=== PATIENT | female | born 1995 | race Caucasian/White ===

== ENCOUNTER → 2021-12-02 | Outpatient (CLI) | payer SELFPAY ==
[2021-12-02 12:10] LABS: hCG Titer Quant., Serum 235 mIU/mL (1-3)
== END | disposition home or self-care (01) ==
PROVIDERS: Referring Provider Nurse Practitioner Women's Health; Visit Provider Nurse Practitioner Women's Health
DX: O20.0 Threatened abortion (principal); Z3A.00 Weeks of gestation of pregnancy not specified
CPT/HCPCS: 36415; 84702; 86850; 86900; 86901

== ENCOUNTER → 2021-12-04 | Outpatient (CLI) | payer SELFPAY ==
[2021-12-04 11:58] LABS: hCG Titer Quant., Serum 71 mIU/mL (1-3)
== END | disposition home or self-care (01) ==
LOC: PAVLAB 10:55
PROVIDERS: Referring Provider Nurse Practitioner Women's Health; Visit Provider Nurse Practitioner Women's Health
DX: O20.0 Threatened abortion (principal)
CPT/HCPCS: 36415; 84702

== ENCOUNTER → 2021-12-11 | Outpatient (CLI) | payer SELFPAY ==
[2021-12-11 11:27] LABS: hCG Titer Quant., Serum 5 mIU/mL (1-3)
== END | disposition home or self-care (01) ==
LOC: PAVLAB 10:40
PROVIDERS: Obstetrics & Gynecology; Referring Provider Nurse Practitioner Women's Health; Visit Provider Nurse Practitioner Women's Health
DX: O20.0 Threatened abortion (principal)
CPT/HCPCS: 36415; 84702

== ENCOUNTER → 2022-04-04 | Outpatient (CLI) | payer SELFPAY ==
[2022-04-04 17:42] LABS: Amphetamine Urine VISTA NEGATIVE (<1000 ng/mL); Barbiturate Urine VISTA NEGATIVE (< 200 ng/mL); Benzodiazepine Urine VISTA NEGATIVE (< 200 ng/mL); Cocaine Urine VISTA NEGATIVE (< 300 ng/mL); Ecstacy Urine VISTA NEGATIVE (< 500 ng/mL); Methadone Urine VISTA NEGATIVE (< 300 ng/mL); PCP Urine VISTA NEGATIVE (< 25 ng/mL); THC Urine VISTA NEGATIVE (< 50 ng/mL); Vista UDS pH Range 5
[2022-04-07 21:07] LABS: Chlamydia By Nucleic Acid AMP Negative (Negative)
[2022-04-08 15:09] LABS: Gonococcus By Nucleic Acid AMP Negative (Negative)
== END | disposition home or self-care (01) ==
PROVIDERS: Visit Provider Obstetrics & Gynecology
DX: Z34.91 Encounter for supervision of normal pregnancy, unspecified, first trimester (principal); Z3A.10 10 weeks gestation of pregnancy
CPT/HCPCS: 80307; 87086; 87088; 87491; 87591

== ENCOUNTER → 2022-04-25 | Outpatient (CLI) | payer SELFPAY ==
[2022-04-25 10:54] LABS: Absolute Neutrophil Count 7.9 X10^3/uL (2.0-7.7); Basophil# 0.05 X10^3/uL; Basophil% 0.5 % (0-1); Eosinophil# 0.08 X10^3/uL; Eosinophils% 0.8 % (0-5); Hematocrit 37.4 % (37-47); Hemoglobin 12.5 g/dL (12.0-15.0); Lymphocyte % 19.1 % (19-41); Mean Corp Hgb Conc 33.4 g/dL (32-36); Mean Corpuscular Hgb 30.3 pg (27.0-32.0); Mean Corpuscular Volume 90.8 fL (81-99); Mean Platelet Vol. 12.2 fl (6.2-12.0); Monocyte# 0.42 X10^3/uL; NRBC Flagged by Analyzer 0 % (0-5); Neutrophil # 7.86 X10^3/uL (2.7-7.7); Platelet Count 192 K/mm3 (150-450); RBC Distribution Width CV 12.6 % (11.6-14.6); RBC Distribution Width SD 41.6 fl (35.1-43.9); Red Blood Count 4.12 M/mm3 (4.2-5.4); White Blood Count 10.5 K/mm3 (4.4-11.0)
[2022-04-25 12:30] LABS: HIV - WCH Non-Reactive (Nonreactive); Hepatitis B Surface Antigen Non-Reactive (Nonreactive); Hepatitis C Antibody Non-Reactive (Nonreactive); Rubella IgG Reactive (Nonreactive); Syphilis Antibodies Non-reactive
== END | disposition home or self-care (01) ==
PROVIDERS: Visit Provider Obstetrics & Gynecology
DX: Z34.91 Encounter for supervision of normal pregnancy, unspecified, first trimester (principal); Z3A.10 10 weeks gestation of pregnancy
CPT/HCPCS: 36415; 85025; 86703; 86762; 86780; 86803; 86850; 86900; 86901; 87340

== ENCOUNTER → 2022-06-10 | Outpatient (CLI) | payer SELFPAY ==
--- NOTE | 2022-06-10 08:03 | US_ITS ---
STUDY: SECOND AND THIRD TRIMESTER OBSTETRICAL ULTRASOUND - LIMITED REASON FOR EXAM: Female, 26 years old. anatomy PRIOR ULTRASOUND: None. TECHNIQUE: Transabdominal and Transvaginal TECHNICAL QUALITY: Adequate. FINDINGS: There is a single intrauterine fetus. The fetus is in a cephalic presentation. There is demonstrated cardiac activity with a heart rate of 144 bpm. There is a normal amniotic fluid volume. The largest amniotic fluid pocket measures 6 cm. The placenta is anterior in location and is not low lying. There are Grade 0 placental changes. The cervix measures cm in length: 4.5. BIOMETRY: BPD: 45 mm: 19 weeks, 3 days HC: 169 mm: 19 weeks, 4 days AC: 143 mm: 19 weeks, 4 days FL: 28 mm: 18 weeks, 3 days CI: 76 FL/AC: 19 FL/BPD: 62 HC/AC: 1.18 age by current US: 19 weeks, 1 days. CR by current US: 4.17.23. Estimated weight: 277 grams, +/- 42 grams, 14 %. Age by LMP: 19 weeks, 6 days. CR by LMP: 4.12.23. ANATOMY: Gender: Male Cranium: Normal lateral ventricles. Normal choroid plexus. Normal cerebellum. Normal cisterna magna. Normal face, nose and lips. Chest: Normal 4-chamber heart. Abdomen/Pelvis: Normal diaphragm. Normal stomach. Normal abdominal wall. Normal cord insertion. Normal 3 vessel cord. Normal kidneys. Normal bladder. Spine: Normal cervical spine. Normal thoracic spine. Normal lumbar spine. Normal sacrum. Extremities: Normal bilateral upper extremities. Normal bilateral lower extremities. US/OB Anatomy Scan IMPRESSION: There is a single live intrauterine with a heart rate of 144 bpm. age by current US: 19 weeks, 1 days. CR by current US: 4.17.23. Estimated weight: 277 grams, +/- 42 grams, 14 %. Electronically Signed: Anupam Olson MD at 15:00 EST ,
== END | disposition home or self-care (01) ==
PROVIDERS: Visit Provider Obstetrics & Gynecology
DX: O09.90 Supervision of high risk pregnancy, unspecified, unspecified trimester (principal); Z3A.19 19 weeks gestation of pregnancy
CPT/HCPCS: 76805; 76817

== ENCOUNTER → 2022-07-31 | Outpatient (CLI) | payer SELFPAY ==
[2022-07-31 10:14] LABS: Absolute Neutrophil Count 10.3 X10^3/uL (2.0-7.7); Basophil# 0.07 X10^3/uL; Basophil% 0.5 % (0-1); Eosinophil# 0.18 X10^3/uL; Eosinophils% 1.3 % (0-5); Hematocrit 35.7 % (37-47); Hemoglobin 12.2 g/dL (12.0-15.0); Lymphocyte % 17.1 % (19-41); Mean Corp Hgb Conc 34.2 g/dL (32-36); Mean Corpuscular Hgb 31.8 pg (27.0-32.0); Mean Platelet Vol. 11.4 fl (6.2-12.0); Monocyte# 0.49 X10^3/uL; Monocyte% 3.6 % (0-10); NRBC Flagged by Analyzer 0 % (0-5); Neutrophil % 76.8 % (47-70); Platelet Count 203 K/mm3 (150-450); RBC Distribution Width CV 12.8 % (11.6-14.6); RBC Distribution Width SD 43.7 fl (35.1-43.9); Red Blood Count 3.84 M/mm3 (4.2-5.4); White Blood Count 13.4 K/mm3 (4.4-11.0)
[2022-07-31 10:20] LABS: Glucose Challenge Gest 1H 50g 156 mg/dL (70-140)
[2022-07-31 10:58] LABS: HIV - WCH Non-Reactive (Nonreactive); Syphilis Antibodies Non-reactive
== END | disposition home or self-care (01) ==
PROVIDERS: Referring Provider Nurse Practitioner Women's Health; Visit Provider Nurse Practitioner Women's Health
DX: Z34.90 Encounter for supervision of normal pregnancy, unspecified, unspecified trimester (principal)
CPT/HCPCS: 36415; 82950; 85025; 86703; 86780

== ENCOUNTER → 2022-08-13 | Outpatient (CLI) | payer SELFPAY ==
[2022-08-13 08:53] LABS: Glucose GTT-Gestation. Fasting 93 mg/dL (<105)
[2022-08-13 08:55] LABS: Glucose GTT-Gestational 1 Hr 177 mg/dL (<190)
[2022-08-13 10:18] LABS: Glucose GTT-Gestational 2 Hr 167 mg/dL (<165)
[2022-08-13 11:31] LABS: Glucose GTT-Gestational 3 Hr 132 L (<145)
== END | disposition home or self-care (01) ==
PROVIDERS: Referring Provider Obstetrics & Gynecology; Visit Provider Obstetrics & Gynecology
DX: Z13.1 Encounter for screening for diabetes mellitus (principal)
CPT/HCPCS: 36415; 82951; 82952

== ENCOUNTER → 2022-10-07 | Outpatient (CLI) | payer SELFPAY | END | disposition home or self-care (01) | PROVIDERS: Referring Provider Registered Nurse; Visit Provider Registered Nurse | DX: Z34.90 Encounter for supervision of normal pregnancy, unspecified, unspecified trimester (principal) | CPT/HCPCS: 87081 ==

== ENCOUNTER 2022-11-02 06:30 | Inpatient (IN) | payer SELFPAY ==
[2022-11-02] VITALS (30 sets, daily range): BP systolic 105–133; BP diastolic 44–75; PULSE 75–127; RESP 16; TEMP 36.1–36.9; O2SAT 97–100; BMI 30.2
[2022-11-02 06:51] LABS: ROM Internal Control Test YES-OK TO RESULT pt. (Internal QC)
[2022-11-02 06:52] LABS: ROM Patient Test POSITIVE (Negative)
[2022-11-02] MEDS: Lactated Ringers 1,000 ML 50 ML IV (06:55)
[2022-11-02 07:11] LABS: Absolute Lymphocyte Count 2.66 X10^3/uL (0.83-4.51); Absolute Neutrophil Count 11.4 X10^3/uL (2.0-7.7); Basophil# 0.05 X10^3/uL; Basophil% 0.3 % (0-1); Eosinophil# 0.12 X10^3/uL; Eosinophils% 0.8 % (0-5); Hematocrit 35.7 % (37-47); Hemoglobin 12.3 g/dL (12.0-15.0); Lymphocyte # 2.66 X10^3/ul (0.83-4.51); Lymphocyte % 17.7 % (19-41); Mean Corp Hgb Conc 34.5 g/dL (32-36); Mean Corpuscular Hgb 31.2 pg (27.0-32.0); Mean Corpuscular Volume 90.6 fL (81-99); Mean Platelet Vol. 12.5 fl (6.2-12.0); Monocyte# 0.74 X10^3/uL; Monocyte% 4.9 % (0-10); NRBC Flagged by Analyzer 0 % (0-5); Neutrophil % 75.6 % (47-70); Platelet Count 150 K/mm3 (150-450); RBC Distribution Width CV 12.8 % (11.6-14.6); RBC Distribution Width SD 41.9 fl (35.1-43.9); Red Blood Count 3.94 M/mm3 (4.2-5.4); White Blood Count 15.1 K/mm3 (4.4-11.0)
[2022-11-02] MEDS: LACTATED RINGERS 500 ML 999 ML IV (08:28)
[2022-11-02 08:30] LABS: Syphilis Antibodies Non-reactive
--- NOTE | 2022-11-02 08:39 | HP.PCM.OB_ITS ---
HPI - General General Date of Admission: 11/02/22 HPI Narrative GERALDINE GARCES, is a 27 y/o @ 40 weeks 4 days who presents to L&D with spontaneous rupture of membranes. She is requesting an epidural at this time for painful contractions. Maternal Data Information CR Calculator Estimated Delivery Date Method Current WG Current Estimate 10/29/22 LMP (Certain) 40w 4d PFSH PFS Medical History (Updated 11/02/22 @ 06:10 by Serenity Tobias) Abnormal glucose affecting Anxiety Depression Miscarriage, threatened, early Supervision of normal first Home Medications prenat.vits,hemal,[id number] 1 tab PO DAILY 11/26/21 [History Last Taken 11/01/22] famotidine 20 mg tablet (Pepcid) 20 mg PO DAILY PRN Indigestion 11/02/22 [History Last Taken Unknown] ferrous sulfate 325 mg (65 mg iron) capsule,extended release 325 mg PO DAILY anemia 11/02/22 [History Last Taken 11/01/22] Allergy/AdvReac Type Severity Reaction Status Date / Time No Known Allergies Allergy Verified 10/21/22 13:07 Family History Father Cardiac arrhythmia Social History adopted: No household members: spouse current occupational status: employed current occupation: marketing pets and animals: Yes (avoid litter box) pets and animals: cat(s) history of recent travel: No sexually active: Yes Smoking Status: Never smoker alcohol intake: former details: not while substance use type: does not use well-balanced diet: daily or most days caffeine: No during the past year weight has: remained stable what type of physical activity do you participate in: none elier/samaritan: Orthodoxy seatbelt use: always do you feel safe at home: Yes additional social history: Spouse Kaleb History 2 Elective abortions Hx Para 0 Spontaneous abortions 1 Hx # Term Pregnancies Ectopic pregnancies Hx # Pregnancies Multiple births # of living children 0 Visit Details Expected Delivery Route/Plan Labor Preferences- CB/BF classes: encouraged labor support person: Kaleb labor intervention preferences: pain management options preferred: epidural cut cord/dad catch: [] : yes, plans PP control planned: [OCP vs condoms] discussed possible routes of delivery and associated risks: [] special requests: [] Plans Covid status: discussed Flu vaccine: declined Tdap vaccine: declines Rhogam: na LARC form signed: complete Problem list reviewed and updated with the most current plan of care details and appropriate orders placed. Relevant counseling for the gestational age provided. Continue routine care and follow up unless otherwise noted in visit notes/problem list details OB Flowsheet Initial Weight: Not Recorded Date -?-?-?-?-?-?-?-?-?-?-?-?- EGA Weight BP Urine Prot -?-?-?-?-?-?-?-?-?-?-?-?- Glucose FHR FuHt Pres Dilation -?-?-?-?-?-?-?-?-?-?-?-?- Effaced St Visit Note 12/02/21 -?-?-?-?-?-?-?-?-?-?-?-?- 12/02/21 151 lb 110/62 -?-?-?-?-?-?-?-?-?-?-?-?- -?-?-?-?-?-?-?--?-?-?-?-?- Work in for vagi nal bleeding. Rpt US per Dr Olivarez:no IUP noted. Endometrial lining 6mm. Probable SAB. HCG, T&S today. Repeat HCG 48 hr. Reviewed bleeding precautions 04/04/22 -?-?-?-?-?-?-?-?-?-?-?-?- 10w 2d 151 lb 127/72 -?-?-?-?-?-?-?-?-?-?-?-?- 160 -?-?-?-?-?-?-?-?-?-?-?-?- SM- no vb crampi ng 04/30/22 -?-?-?-?-?-?-?-?-?-?-?-?- 14w 0d 154 lb 109/71 Negative -?-?-?-?-?-?-?-?-?-?-?-?- Negative 155 -?-?-?-?-?-?-?-?-?-?-?-?- JV- no complaint s other than some constipation. Good movement and CRL appropriate for ga. anatomy ultrasound ordered. 05/27/22 -?-?-?-?-?-?-?-?-?-?-?-?- 17w 6d 159 lb 100/66 Negative -?-?-?-?-?-?-?-?-?-?-?-?- Negative 148 -?-?-?-?-?-?-?-?-?-?-?-?- MH-No VB, crampi ng. Some heartburn/meds reviewed. Anatomy US 06/1006/24/22 -?-?-?-?-?-?-?-?-?-?-?-?- 21w 6d 164 lb 4 oz 98/64 Nega tive -?-?-?-?-?-?-?-?-?-?-?-?- Negative 147 -?-?-?-?-?-?-?-?-?-?-?-?- MH-No VB, crampi ng. No movement yet, ant placenta. Denies concerns 07/29/22 -?-?-?-?-?-?-?-?-?-?-?-?- 26w 6d 165 lb 117/76 -?-?-?-?-?-?-?-?-?-?-?-?- 140 27 -?-?-?-?-?-?-?-?-?-?-?-?- LC- no vb/ctx/lo f. good fm. no concerns. 08/19/22 -?-?-?-?-?-?-?-?-?-?-?-?- 29w 6d 174 lb 117/69 Negative -?-?-?-?-?-?-?-?-?-?-?-?- Negative 135 30 -?-?-?-?-?-?-?-?-?-?-?-?- LC- no vb/ctx/lo f. good fm. reviewed normal 3 hour glucose.larc signed 09/02/22 -?-?-?-?-?-?-?-?-?-?-?-?- 31w 6d 170 lb 124/74 Negative -?-?-?-?-?-?-?-?-?-?-?-?- 1000 g/dL 143 31 -?-?-?-?-?-?-?-?-?-?-?-?- LC- no vb/ctx/lo f. LC- no vb/ctx/lof.no concern s. ++ glucose in urine, had special k this morning. reviewed balance diet. 09/16/22 -?-?-?-?-?-?-?-?-?-?-?-?- 33w 6d 173 lb 122/78 Negative -?-?-?-?-?-?-?-?-?-?-?-?- Negative 145 33 -?-?-?-?-?-?-?-?-?-?-?-?- LC- no vb/ctx/lo f. good fm. negative glucose today. no concerns. 09/30/22 -?-?-?-?-?-?-?-?-?-?-?-?- 35w 6d 177 lb 122/80 Negative -?-?-?-?-?-?-?-?-?-?-?-?- Negative 141 35 Cephalic -?-?-?-?-?-?-?-?-?-?-?-?- LC- no lof/vb. n o consistent ctx. good fm. having some dyspepsia- enc pepcid/lifestyle changes. 10/07/22 -?-?-?-?-?-?-?-?-?-?-?-?- 36w 6d 180 lb 134/72 Negative -?-?-?-?-?-?-?-?-?-?-?-?- Negative 138 36 Cephalic -?-?-?-?-?-?-?-?-?-?-?-?- LC-doing well. g ood fm. no lof/vb/ctx. GBS obtained, declines VE. 10/14/22 -?-?-?-?-?-?-?-?-?-?-?-?- 37w 6d 184 lb 111/72 Negative -?-?-?-?-?-?-?-?-?-?-?-?- Negative 140 38 Cephalic -?-?-?-?-?-?-?-?-?-?-?-?- lc- doing well, no concerns. no lof/vb/ctx. good fm. gbs negative. declines ve. 10/21/22 -?-?-?-?-?-?-?-?-?-?-?-?- 38w 6d 182 lb 116/74 Negative -?-?-?-?-?-?-?-?-?-?-?-?- Negative 142 38 Cephalic 1 -?-?-?-?-?-?-?-?-?-?-?-?- 40 -2 LC- doing well. no vb/ctx/lof. good fm. membrane sweep today. 10/28/22 -?-?-?-?-?-?-?-?-?-?-?-?- 39w 6d 185 lb 123/76 Negative -?-?-?-?-?-?-?-?-?-?-?-?- Negative 152 39 Cephalic 3 -?-?-?-?-?-?-?-?-?-?-?-?- 60 -2 LC- no con cerns. good fm. no consistent ctx. no lof/vb. membrane swept today, IOL for 41 weeks scheduled. NST FHR Rate Baby A Baseline: 140 Variability:: Moderate Accelerations:: 15 x 15 FHR Category:: Category I Uterine Activity:: irregular contractions ROS Constitutional Constitutional: Denies change in weight, fatigue, fever(s), headache(s), poor appetite or weakness Eyes Eyes: Denies blurry vision, change in vision, seeing flashes or spots in vision ENT HEENT: Denies dizziness, headache(s), loss taste/smell or sore throat Cardiovascular Cardiovascular: Denies chest pain, dizziness, dyspnea, irregular heart rhythm, leg edema, palpitations, rapid heart rate or vomiting Respiratory/Chest Respiratory/Chest: Denies chest tightness, cough, dyspnea or breast pain Gastrointestinal Gastrointestinal: Denies abdominal pain, anorexia, constipation, cramping, diarrhea, hemorrhoids, vomiting or weight changes Genitourinary Genitourinary: Denies dysuria, flank pain, genital lesions, genital pain, urinary frequency or urinary urgency Musculoskeletal Musculoskeletal: Denies back pain, difficulty walking, joint pain, limited range of motion, muscle cramps or numbness Integumentary Integumentary: Denies lesions or unusual bruising Neurologic Neurologic: Denies abnormal movements, abnormal speech, dizziness, numbness, seizure-like activity or syncope Psychiatric Psychiatric: Denies anxiety, behavioral changes, change in appetite, change in libido, cognitive impairment, confusion, depression, difficulty concentrating, hallucinations or suicidal thoughts Endocrine Endocrinology: Denies excessive sweating, polydipsia or polyuria Hematologic/Lymphatic Hematologic/Lymphatic: Denies easy bleeding, easy bruising or lymphadenopathy Allergic/Immunologic Allergic/Immunologic: Denies itchy eyes, lip swelling, seasonal rhinorrhea, rhinitis, throat swelling, tongue swelling, eczemia, wheezing or asthma Vital Signs Vital Signs Vital Signs: 11/02/22 06:01 11/02/22 06:01 11/02/22 06:01 Temperature Temperature Source Pulse Rate 111 H Blood Pressure 133/73 H BP Systolic 133 BP Diastolic 73 Pulse Ox 97 11/02/22 06:04 11/02/22 06:04 11/02/22 07:21 Temperature 98.1 F Temperature Source Temporal Temporal Pulse Rate Blood Pressure BP Systolic BP Diastolic Pulse Ox 11/02/22 07:21 11/02/22 07:21 11/02/22 07:21 Temperature 98.3 F Temperature Source Pulse Rate 80 Blood Pressure 122/75 H BP Systolic 122 BP Diastolic 75 Pulse Ox Weight Weight: 187 lb 6.287 oz Body Mass Index (BMI) 30.2 Physical Exam Const alert, oriented x3, no apparent distress and healthy appearing General Appearance: cooperative; Negative for anxious HEENT normocephalic Face and Sinus: normal facial exam Eyes EOMs intact bilaterally and no scleral icterus General Eye: normal appearance of both eyes Neck full ROM and supple Lymph Lymphatic: no lymphadenopathy noted Chest Chest: abnormal inspection of the chest Resp normal respiratory effort Effort and Inspection: able to speak in complete sentences Cardio regular rate GI soft to palpation and non-tender Inspection: gravid Palpation: soft; Negative for tender external exam normal Amniotic Fluid: ROM+plus Back/Spine no CVA tenderness Extremity normal to inspection, full ROM and no clubbing, cyanosis or edema General Extremity: Negative for calf tenderness or edema Skin Lesions: no lesions Rashes: no rashes Psych mental status grossly normal Labs Labs Labs: 2 Blood Type O POSITIVE Antibody Screen NEGATIVE Hct 35.7 % (37-47) L Hgb 12.3 g/dL (12.0-15.0) Pap Smear Negative Obstetrics US Syphilis Total Ab Non-reactive Rubella IgG Antibody Reactive (Nonreactive) Hep Bs Antigen Non-Reactive (Nonreactive) Chlamydia DNA (ISABELLA) Negative (Negative) Neisseria gonorrhoeae DNA (ISABELLA) Negative (Negative) HIV 1&2 Antibody Non-Reactive (Nonreactive) Glucose 1 Hr 50 gm 156 mg/dL (70-140) H Assessment & Plan (1) Anxiety and depression: COMMENT: No meds X 5 years. Celexa in past; stable (2) : QUALIFIERS: Weeks of gestation: 14 weeks Qualified Code(s): Z3A.14 - 14 weeks gestation of COMMENT: GBS negative. declines genetic and carrier testing (3) Supervision of high risk , antepartum: COMMENT: PRR , CR 10/29/22, Kaleb (4) Abnormal glucose affecting : COMMENT: needs 3 hr GTT, 3 hr nl PLAN: Plan Patient presents IAL, plan expectant management for , pitocin PRN if needed. Pain management: plans epidural. GBS negative . Management of any complications: [none] I have reviewed the [facility] and made any clinically relevant updates.
[2022-11-02] MEDS: fentaNYL-bupivacaine (epidural) 100 ML BAG EPIDURAL (09:42)
[2022-11-02] MEDS: Oxytocin 15 Units/NS 250ml 15 UNITS/250 ML IV.SOLN 83 UNITS IV (11:16)
--- NOTE | 2022-11-02 11:19 | OP.PCM_ITS ---
Assessment & Plan (1) Anxiety and depression: COMMENT: No meds X 5 years. Celexa in past; stable (2) : QUALIFIERS: Weeks of gestation: 14 weeks Qualified Code(s): Z3A.14 - 14 weeks gestation of COMMENT: GBS negative. declines genetic and carrier testing (3) Supervision of high risk , antepartum: COMMENT: PRR , CR 10/29/22, Kaleb (4) Abnormal glucose affecting : COMMENT: needs 3 hr GTT, 3 hr nl Maternal Data Information CR Calculator Estimated Delivery Date Method Current WG Current Estimate 10/29/22 LMP (Certain) 40w 4d Final CR: 10/29/22 Final CR Source: LMP Gestational age: 40 weeks 4 days Vaginal Delivery Maternal Presentation Maternal Presentation: Active Labor Operative Information Date of Procedure: 11/02/22 Pre-Operative Diagnosis: 27 y/o @ 40 weeks 4 days, srom, active labor Post-Operative Diagnosis: 27 y/o @ 40 weeks 4 days, srom, active labor Surgery / Procedure Performed: Spontaneous Vaginal Delivery Type of Anesthesia: Epidural Drain: Ward to straight drain Estimated Blood Loss: 100cc Time of Delivery: 11:09 Findings Description of Procedure: Patient began pushing and delivered the head in the GLORIA presentation. The head was delivered atraumatically. The anterior and posterior shoulders delivered without complication followed by the rest of the infant and the infant was placed on the maternal abdomen. Delayed cord clamping was employed for approximately 60 seconds. Cord was clamped and cut and gentle traction was applied to the cord and the placenta delivered spontaneously immediately following it was noted to be intact with three-vessel cord. The perineum and vagina were inspected and noted to have a 1st degree perineal laceration, repaired with a 3-0 vicryl. EBL was 100 cc. Patient and tolerated delivery well. baby boy yarbrough Presentation: Vertex and GLORIA Amniotic Membrane Rupture Type: Spontaneous Amniotic Fluid Description: Clear Placental Delivery Description: Spontaneous Placenta Disposition: [facility] Cord Vessel Description: 3 Vessels Cord Entanglement: None Infant A Gender: Male (1 minute): 8 (5 minute): 9 Delayed Cord Clamping: Yes Post Vaginal Delivery Medications Given After Delivery: IV Pitocin and IM Pitocin Episiotomy Description: None Laceration: 1st degree Complication Complications: None Multi Select Codes Urinary/Genital Urinary/Genital CPT Codes: 59443 Vaginal Delivery [facility]
--- NOTE | 2022-11-02 11:22 | DCINST_ITS ---
Discharge Instructions Diet Discharge Diet: No restrictions Activity Discharge Activity: Return to Normal Activity, May Not Drive (while taking narcotic pain medications.) and May Shower May resume sexual activity in: 4-6 weeks Dressing / Incision Call your doctor if your incision/area has: Continuous Slow Oozing, Sudden Increased Bleeding, Increased Pain/ Swelling, Increased Redness and Foul Smelling Discharge Follow Up Care Please Follow Up With: Gwen Macdonald, When: Call [phone] to make an appointment with your doctor in 6 weeks. If you had elevated blood pressure or 4th degree laceration, you will need to be seen in 2 weeks. Test Results: Test results from this visit will be discussed in further detail at your follow- up appointment, if applicable. Discharge Plan Admission Admit Date/Time: 11/02/22 06:30 Attending Provider: Gwen Macdonald Primary Care Provider: Care Physician,Kriss Primary Discharge Orders/Prescriptions Prescriptions: No Action prenat.vits,hemal,[id number] Tablet 1 tab PO DAILY famotidine [Pepcid] 20 mg Tablet 20 mg PO DAILY PRN (Reason: Indigestion) ferrous sulfate 325 mg (65 mg iron) Capsule, Extended Release 325 mg PO DAILY Referrals / Follow Up: Care Physician,No Primary [Primary Care Provider] -
[2022-11-02] MEDS: Oxytocin 10 UNITS/ML Vial IM (11:25)
[2022-11-02] MEDS: Acetaminophen 500 MG Tablet 1000 MG PO ×2 (13:36→20:27)
[2022-11-02] MEDS: Ferrous Sulfate 325 MG Tablet PO (13:36)
[2022-11-02] MEDS: Naproxen 500 MG Tablet PO (18:24)
[2022-11-03 03:22] VITALS: BP 116/58; PULSE 81; RESP 16; TEMP 36.8
[2022-11-03] MEDS: Naproxen 500 MG Tablet PO (06:25)
[2022-11-03] MEDS: Acetaminophen 500 MG Tablet 1000 MG PO (06:26)
--- NOTE | 2022-11-03 08:12 | PN.OBGYN_ITS ---
Subjective Subjective Patient doing well without complaints. Tolerating PO. Ambulating and voiding without difficulty. Feeding well. Denies chest pain, shortness of breath, calf pain/swelling, fevers, chills, lightheadedness. Objective Data Objective Data Vital Signs: Vital Signs Temp Pulse Resp BP Pulse Ox O2 Del Method 98.2 F 81 16 116/58 L 100 Room Air 11/03/22 03:22 11/03/22 03:22 11/03/22 03:22 11/03/22 03:22 11/02/22 16:20 11/02/22 16:20 Oxygen Delivery Method Room Air Weight: 187 lb 6.287 oz Body Mass Index (BMI) 30.2 Intake & Output: Intake and Output for Last 24 Hours 11/01/22 11/02/22 11/03/22 23:59 23:59 23:59 Intake Total 1297.50 / 1297.50 Output Total 900 / 900 Balance 397.50 / 397.50 Lab / Micro Data Result Diagrams: 11/02/22 06:55 Labs: Laboratory Results - last 24 hr 11/02/22 06:55: Blood Type O POSITIVE, Antibody Screen NEGATIVE 11/02/22 06:55: Syphilis Total Ab Non-reactive ROS Constitutional Constitutional: Denies chills, fatigue, fever(s), poor appetite or weakness Eyes Eyes: Denies blurry vision, change in vision, seeing flashes or spots in vision ENT HEENT: Denies dizziness, headache(s), loss taste/smell or sore throat Cardiovascular Cardiovascular: Denies chest pain, dizziness, dyspnea, irregular heart rhythm, palpitations or rapid heart rate Respiratory/Chest Respiratory/Chest: Denies chest tightness, cough, dyspnea or breast pain Gastrointestinal Gastrointestinal: Denies abdominal pain, constipation or vomiting Genitourinary Genitourinary: Denies dysuria or flank pain Musculoskeletal Musculoskeletal: Denies difficulty walking, joint pain, limited range of motion or numbness Neurologic Neurologic: Denies abnormal movements, abnormal speech, dizziness, numbness, seizure-like activity or syncope Psychiatric Psychiatric: Denies anxiety, behavioral changes, change in appetite, confusion, depression or suicidal thoughts Physical Exam Const alert, oriented x3 and no apparent distress General Appearance: cooperative and comfortable Resp normal respiratory effort Cardio regular rate GI normal to inspection, nondistended, normoactive bowel sounds GI Narrative: uterus is firm below umbilicus Palpation: soft Back/Spine no CVA tenderness and thoraco-lumbar ROM normal Extremity normal to inspection, no clubbing, cyanosis or edema, no calf tenderness and no pedal edema Psych mental status grossly normal, thought process normal, cooperative, affect normal , speech normal, activity/motor behavior normal, denies homicidal ideation and denies suicidal ideation Assessment & Plan (1) Anxiety and depression: COMMENT: No meds X 5 years. Celexa in past; stable (2) : QUALIFIERS: Weeks of gestation: 14 weeks Qualified Code(s): Z3A.14 - 14 weeks gestation of COMMENT: GBS negative. declines genetic and carrier testing (3) Supervision of high risk , antepartum: COMMENT: PRR , CR 10/29/22, Kaleb (4) Abnormal glucose affecting : COMMENT: needs 3 hr GTT, 3 hr nl PLAN: Plan s/p PPD # 1 1. routine post delivery care 2. breast feeding- support given 3. rh positive 4. rubella immune 5. pt wants to go home today
[2022-11-03 08:13] VITALS: BP 109/65; PULSE 82
[2022-11-03 08:23] VITALS: BP 109/65; PULSE 82; RESP 16; TEMP 36.1
[2022-11-03] MEDS: Prenatal Vits Tablet 1 TABLET PO (11:25)
[2022-11-03] MEDS: Ferrous Sulfate 325 MG Tablet PO (11:25)
== END 2022-11-03 12:45 | disposition home or self-care (01) | DRG 807 ==
LOC: WPOUT 06:34 → WP 06:34
PROVIDERS: Admitting Provider Obstetrics & Gynecology; Visit Provider Obstetrics & Gynecology
DX: O48.0 Post-term pregnancy (principal); Z37.0 Single live birth; O99.344 Other mental disorders complicating childbirth; F32.A Depression, unspecified; F41.9 Anxiety disorder, unspecified; O70.0 First degree perineal laceration during delivery; Z3A.40 40 weeks gestation of pregnancy
CPT/HCPCS: 59025; 59050; 84112; 85025; 86780; 86850; 86900; 86901; 99221; J7120; G0378

== ENCOUNTER → 2023-10-20 | Outpatient (CLI) | payer SELFPAY ==
[2023-10-23 06:09] LABS: Chlamydia By Nucleic Acid AMP Negative (Negative); Gonococcus By Nucleic Acid AMP Negative (Negative)
== END | disposition home or self-care (01) ==
LOC: OPUS 13:03
PROVIDERS: Referring Provider Obstetrics & Gynecology; Visit Provider Obstetrics & Gynecology
DX: Z34.90 Encounter for supervision of normal pregnancy, unspecified, unspecified trimester (principal); Z3A.00 Weeks of gestation of pregnancy not specified
CPT/HCPCS: 87086; 87088; 87491; 87591

== ENCOUNTER → 2023-10-28 | Outpatient (CLI) | payer SELFPAY ==
--- NOTE | 2023-10-28 13:24 | US_ITS ---
STUDY: FIRST TRIMESTER OBSTETRICAL ULTRASOUND REASON FOR EXAM: Female, 28 years old subchorionic hemorrhage in first trimester LMP: September 08, 2023. TECHNIQUE: Transabdominal and Transvaginal TECHNICAL QUALITY: Adequate. PRIOR ULTRASOUND: None. FINDINGS: There is visualization of a single gestational sac in a normal intrauterine position. The mean sac diameter (MSD) measures 2.25 cm, indicating an estimated gestational age (EGA) of 7 weeks, 1 days. The gestational sac shape is within normal limits. There is a visualized yolk sac. The yolk sac measures 2.9 mm. The placenta is non-visualized. There is visualization of a live embryo. The crown-rump length (CRL) measures 1.73 cm, indicating an estimated gestational age (EGA) of 8 weeks, 0 days. There is demonstrated cardiac activity with a heart rate of 166 bpm. The estimated gestation age (EGA) by LMP is 9 weeks, 1 days. The estimated date of delivery (CR) by LMP is May 31, 2024. The estimated gestation age (EGA) by US is 7 weeks, 4 days. The estimated date of delivery (CR) by US is June 11, 2024. The uterus measures 12.5 cm x 8 cm x 6.6 centimeters. There is a 3.6 cm x 5 cm x 2 cm subchorionic bleed to the right side of the gestational sac. There is no demonstrated uterine fibroid. The cervix is closed. The right ovary measures 3.5 cm x 2.2 cm x 2.6 cm. There is no right ovarian cyst. There is no visualized right adnexal mass or complex lesion. The left ovary measures 3.7 cm x 3.2 cm x 3.2 cm. There is no left ovarian cyst. There is no visualized left adnexal mass or complex lesion. There is no fluid in the cul de sac. US/Init OB < 14Wks US IMPRESSION: Single live intrauterine gestation with a mean gestational age of 7 weeks and 4 days. Findings in keeping with a 3.6 cm x 5 cm x 2 2 cm subchorionic bleed to the right side of the gestational sac. Electronically Signed: Robby Nelson MD at 8:32 EDT ,
== END | disposition home or self-care (01) ==
LOC: OPUS 13:23
PROVIDERS: Referring Provider Obstetrics & Gynecology; Visit Provider Obstetrics & Gynecology
DX: O20.8 Other hemorrhage in early pregnancy (principal); Z3A.00 Weeks of gestation of pregnancy not specified
CPT/HCPCS: 76801

== ENCOUNTER → 2023-11-12 | Outpatient (CLI) | payer SELFPAY ==
--- NOTE | 2023-11-12 13:33 | US_ITS ---
STUDY: FIRST TRIMESTER OBSTETRICAL ULTRASOUND REASON FOR EXAM: Female, 28 years old follow up on subchorionic hemorrhage LMP: September 08, 2023. TECHNIQUE: Transabdominal TECHNICAL QUALITY: Adequate. PRIOR ULTRASOUND: Comparison is made with prior study dated October 28, 2023. FINDINGS: There is visualization of a single gestational sac in a normal intrauterine position. The mean sac diameter (MSD) measures 3.97 cm, indicating an estimated gestational age (EGA) of 9 weeks, 3 days. The gestational sac shape is within normal limits. There is no demonstrated yolk sac. The placenta is non-visualized. There is visualization of a live embryo. The crown-rump length (CRL) measures 3.23 cm, indicating an estimated gestational age (EGA) of 9 weeks, 6 days. There is demonstrated cardiac activity with a heart rate of 171 bpm. The estimated gestation age (EGA) by LMP is 11 weeks, 2 days. The estimated date of delivery (CR) by LMP is May 31, 2024. The estimated gestation age (EGA) by US is 9 weeks, 5 days. The estimated date of delivery (CR) by US is June 11, 2024. The uterus measures 14.1 cm x 8.3 cm x 7.8 cm. Persistent 2.2 cm x 1.8 cm x 2.3 cm subchorionic hemorrhage to the right side of the gestational sac. There is no demonstrated uterine fibroid. The cervix is closed. The right ovary measures 2.6 cm x 1.5 cm x 1.8 cm. There is no right ovarian cyst. There is no visualized right adnexal mass or complex lesion. The left ovary measures 3.1 cm x 2.4 cm x 2.2 cm. There is no left ovarian cyst. There is no visualized left adnexal mass or complex lesion. There is no fluid in the cul de sac. US/Init OB < 14Wks US IMPRESSION: Single live intrauterine gestation with mean gestational age of 9 weeks and 5 days. Persistent subchorionic hemorrhage to the right side of the gestational sac measuring 2.2 cm x 1.8 cm x 2.3 cm. This has decreased in size as compared to prior examination. Electronically Signed: Robby Nelson MD at 9:25 EDT ,
== END | disposition home or self-care (01) ==
PROVIDERS: Referring Provider Nurse Practitioner Women's Health; Visit Provider Nurse Practitioner Women's Health
DX: O20.8 Other hemorrhage in early pregnancy (principal); Z3A.00 Weeks of gestation of pregnancy not specified
CPT/HCPCS: 76801

== ENCOUNTER → 2023-12-07 | Outpatient (CLI) | payer SELFPAY ==
--- NOTE | 2023-12-07 09:08 | US_ITS ---
STUDY: FIRST TRIMESTER OBSTETRICAL ULTRASOUND REASON FOR EXAM: Female, 28 years old cervical length LMP: 09/05/2023 TECHNIQUE: Transvaginal TECHNICAL QUALITY: Adequate. PRIOR ULTRASOUND: None. FINDINGS: There is visualization of a single gestational sac in a normal intrauterine position. There is visualization of a live embryo. The crown-rump length (CRL) measures , indicating an estimated gestational age (EGA) of weeks, days. There is demonstrated cardiac activity with a heart rate of 152 bpm. The estimated gestation age (EGA) by LMP is 13 weeks, 2 days. The estimated date of delivery (CR) by LMP is 06/11/2024. The estimated gestation age (EGA) by US is weeks, days. The estimated date of delivery (CR) by US is . The uterus measures . There is no demonstrated uterine fibroid. The cervix is closed. The cervix measures 4.5 cm in length. There is a posterior placenta with the complete placenta previa. The ovaries are not visualized. There is no fluid in the cul de sac. US/Transvaginal w/Preg US IMPRESSION: Living intrauterine with posterior placenta with complete placenta previa. Cervical length 4.5 cm. Electronically Signed: Jam Akhtar MD at 21:50 EDT ,
[2023-12-07 09:52] LABS: Absolute Lymphocyte Count 2.28 X10^3/uL (0.83-4.51); Absolute Neutrophil Count 7.4 X10^3/uL (2.0-7.7); Basophil# 0.06 X10^3/uL; Basophil% 0.6 % (0-1); Eosinophil# 0.13 X10^3/uL; Eosinophils% 1.3 % (0-5); Hematocrit 34.2 % (37-47); Hemoglobin 11.6 g/dL (12.0-15.0); Lymphocyte # 2.28 X10^3/ul (0.83-4.51); Lymphocyte % 22.1 % (19-41); Mean Corp Hgb Conc 33.9 g/dL (32-36); Mean Corpuscular Hgb 30.1 pg (27.0-32.0); Mean Corpuscular Volume 88.6 fL (81-99); Mean Platelet Vol. 11.6 fl (6.2-12.0); Monocyte# 0.45 X10^3/uL; Monocyte% 4.4 % (0-10); NRBC Flagged by Analyzer 0 % (0-5); Neutrophil # 7.37 X10^3/uL (2.7-7.7); Neutrophil % 71.2 % (47-70); Platelet Count 183 K/mm3 (150-450); RBC Distribution Width CV 12.9 % (11.6-14.6); RBC Distribution Width SD 41.6 fl (35.1-43.9); Red Blood Count 3.86 M/mm3 (4.2-5.4); White Blood Count 10.3 K/mm3 (4.4-11.0)
[2023-12-07 11:26] LABS: HIV - WCH Non-Reactive (Nonreactive); Hepatitis B Surface Antigen Non-Reactive (Nonreactive); Hepatitis C Antibody Non-Reactive (Nonreactive); Rubella IgG Reactive (Nonreactive); Syphilis Antibodies Non-reactive
== END | disposition home or self-care (01) ==
PROVIDERS: Referring Provider Obstetrics & Gynecology; Visit Provider Obstetrics & Gynecology
DX: Z34.90 Encounter for supervision of normal pregnancy, unspecified, unspecified trimester (principal); Z3A.00 Weeks of gestation of pregnancy not specified
CPT/HCPCS: 36415; 76817; 85025; 86703; 86762; 86780; 86803; 86850; 86900; 86901; 87340

== ENCOUNTER → 2024-01-25 | Outpatient (CLI) | payer SELFPAY ==
--- NOTE | 2024-01-25 08:11 | US_ITS ---
STUDY: SECOND AND THIRD TRIMESTER OBSTETRICAL ULTRASOUND REASON FOR EXAM: Female, 28 years old anatomy LMP: August 25, 2023. TECHNIQUE: Transabdominal and Transvaginal TECHNICAL QUALITY: Adequate. PRIOR ULTRASOUND: Comparison is made with prior study December 07, 2023. FINDINGS: There is a single intrauterine fetus. The fetus is in a cephalic presentation. There is demonstrated cardiac activity with a heart rate of 146 bpm. There is a normal amniotic fluid volume. The largest amniotic fluid pocket measures 4.5 cm. The amniotic fluid index (JUWAN) is within normal limits. The placenta is posterior in location and is not low lying. There are Grade 0 placental changes. The cervix measures 3.4 cm in length. The adnexal regions are not visualized. BIOMETRY: BPD: 5.2 cm: 21 weeks, 6 days HC: 19.64 cm: 21 weeks, 6 days AC: 16.8 cm: 21 weeks, 6 days FL: 3.48 cm: 21 weeks, 0 days CI: 75% FL/BPD: 67% FL/HC: FL/AC: 21% HC/AC: 1.17 age by current US: 21 weeks, 4 days. CR by current US: June 02, 2024. Estimated weight: 430 grams, +/- 64 grams, 95 %. age by prior US: 20 weeks, 2 days. CR by prior US: June 11, 2024. Age by LMP: 21 weeks, 6 days. CR by LMP: May 31, 2024. ANATOMY: Gender: Male Cranium: Normal lateral ventricles. Normal choroid plexus. Normal cerebellum. Normal cisterna magna. Normal face, nose and lips. Chest: Normal 4-chamber heart. Abdomen/Pelvis: Normal diaphragm. Normal stomach. Normal abdominal wall. Normal cord insertion. Normal 3 vessel cord. Normal kidneys. Normal bladder. Spine: Normal cervical spine. Normal thoracic spine. Normal lumbar spine. Normal sacrum. Extremities: Normal bilateral upper extremities. Normal bilateral lower extremities. IMPRESSION: Single live intrauterine gestation with mean gestational age of 21 weeks and 4 days. Electronically Signed: Robby Nelson MD at 15:06 EDT , STUDY: FIRST TRIMESTER OBSTETRICAL ULTRASOUND REASON FOR EXAM: Female, 28 years old . Cervical length. LMP: August 25, 2023. TECHNIQUE: Transvaginal TECHNICAL QUALITY: Adequate. PRIOR ULTRASOUND: None. FINDINGS: Cervical length measures 3.4 cm. US/OB Anatomy w/ Transvaginal IMPRESSION: Cervical length measures 3.4 cm. Electronically Signed: Robby Nelson MD at 15:07 EDT ,
== END | disposition home or self-care (01) ==
LOC: US 08:10
PROVIDERS: Referring Provider Obstetrics & Gynecology; Visit Provider Obstetrics & Gynecology
DX: Z34.90 Encounter for supervision of normal pregnancy, unspecified, unspecified trimester (principal); Z3A.00 Weeks of gestation of pregnancy not specified
CPT/HCPCS: 76805; 76817

== ENCOUNTER → 2024-05-18 | Outpatient (CLI) | payer SELFPAY | END | disposition home or self-care (01) | PROVIDERS: Referring Provider Advanced Practice Midwife; Visit Provider Advanced Practice Midwife | DX: Z34.82 Encounter for supervision of other normal pregnancy, second trimester (principal) | CPT/HCPCS: 87077; 87081; 87186 ==

== ENCOUNTER 2024-05-25 19:50 | Inpatient (IN) | payer SELFPAY ==
[2024-05-25] VITALS (26 sets, daily range): BP systolic 87–126; BP diastolic 50–77; PULSE 81–107; RESP 14–16; TEMP 36.3–36.8; O2SAT 89–100; BMI 27.7
[2024-05-25] MEDS: Lactated Ringers 1,000 ML 999 ML IV (19:55)
[2024-05-25 20:08] LABS: Absolute Lymphocyte Count 2.88 X10^3/uL (0.83-4.51); Absolute Neutrophil Count 15.8 X10^3/uL (2.0-7.7); Basophil# 0.06 X10^3/uL; Basophil% 0.3 % (0-1); Eosinophil# 0.06 X10^3/uL; Eosinophils% 0.3 % (0-5); Hematocrit 30.7 % (37-47); Hemoglobin 10.5 g/dL (12.0-15.0); Lymphocyte # 2.88 X10^3/ul (0.83-4.51); Lymphocyte % 14.6 % (19-41); Mean Corp Hgb Conc 34.2 g/dL (32-36); Mean Corpuscular Hgb 29.2 pg (27.0-32.0); Mean Corpuscular Volume 85.5 fL (81-99); Mean Platelet Vol. 12.2 fl (6.2-12.0); Monocyte# 0.76 X10^3/uL; Monocyte% 3.9 % (0-10); NRBC Flagged by Analyzer 0 % (0-5); Neutrophil # 15.76 X10^3/uL (2.7-7.7); Neutrophil % 80.2 % (47-70); Platelet Count 172 K/mm3 (150-450); RBC Distribution Width CV 13.2 % (11.6-14.6); RBC Distribution Width SD 40.7 fl (35.1-43.9); Red Blood Count 3.59 M/mm3 (4.2-5.4); White Blood Count 19.7 K/mm3 (4.4-11.0)
[2024-05-25] MEDS: Penicillin G Pot 5,000,000 UNITS in 0.9% Normal Saline (100mL MB+) 100 ML 150 UNITS IV (20:42)
[2024-05-25 20:45] LABS: Syphilis Antibodies Non-reactive
[2024-05-25] MEDS: fentaNYL-bupivacaine (epidural) 100 ML BAG EPIDURAL (21:07)
[2024-05-25 21:55] LABS: Bedside Glucose 90 mg/dL (74-106)
[2024-05-25 21:55] LABS: Bedside Glucose 93 mg/dL (74-106)
[2024-05-25] MEDS: Ondansetron 4 MG/2 ML Vial IV (22:35)
[2024-05-25] MEDS: Oxytocin 10 UNITS/ML Vial IM (23:22)
[2024-05-25] MEDS: Oxytocin 15 Units/NS 250ml 15 UNITS/250 ML IV.SOLN 83 UNITS IV (23:32)
[2024-05-26] VITALS (18 sets, daily range): BP systolic 99–117; BP diastolic 54–70; PULSE 61–84; RESP 14–18; TEMP 36.1–36.7; O2SAT 97–98
[2024-05-26 00:09] LABS: Bedside Glucose 88 mg/dL (74-106)
[2024-05-26 00:09] LABS: Bedside Glucose 109 mg/dL (74-106)
[2024-05-26] MEDS: Ibuprofen 600 MG Tablet PO ×4 (01:26→21:39)
[2024-05-26] MEDS: Acetaminophen 500 MG Tablet 1000 MG PO ×4 (02:43→23:59)
[2024-05-26 05:52] LABS: Bedside Glucose 103 mg/dL (74-106)
[2024-05-27 02:00] VITALS: BP 106/68; PULSE 72; RESP 18; TEMP 36.6; O2SAT 100
[2024-05-27] MEDS: Ibuprofen 600 MG Tablet PO ×2 (03:57→10:17)
[2024-05-27] MEDS: Acetaminophen 500 MG Tablet 1000 MG PO (05:59)
[2024-05-27 10:40] VITALS: BP 109/72; PULSE 67; RESP 16; TEMP 36.4; O2SAT 100
== END 2024-05-27 12:10 | disposition home or self-care (01) | DRG 806 ==
LOC: WPOUT 19:53 → WP 19:53
PROVIDERS: Admitting Provider Obstetrics & Gynecology; Referring Provider Advanced Practice Midwife; Visit Provider Obstetrics & Gynecology
DX: O24.429 Gestational diabetes mellitus in childbirth, unspecified control (principal); Z37.0 Single live birth; O98.82 Other maternal infectious and parasitic diseases complicating childbirth; F32.A Depression, unspecified; F41.9 Anxiety disorder, unspecified; O99.344 Other mental disorders complicating childbirth; O36.63X0 Maternal care for excessive fetal growth, third trimester, not applicable or unspecified; B95.1 Streptococcus, group B, as the cause of diseases classified elsewhere; O70.0 First degree perineal laceration during delivery; Z3A.37 37 weeks gestation of pregnancy
CPT/HCPCS: 59025; 59050; 76816; 82962; 85025; 86780; 86850; 86900; 86901; 99221; J7120; G0378; J2405